=== PATIENT | male | born 1945 | race Caucasian/White ===

== ENCOUNTER 2016-09-22 13:46 | Observation (INO) ==
[2016-09-22] MEDS ORDERED: NITROGLYCERIN 2% OINT 1 INCH/GM PACK TOP STA (16:28)
[2016-09-22] MEDS ORDERED: MORPHINE 2 MG/1 ML SYRINGE IV STA (16:28)
[2016-09-22] MEDS ORDERED: ONDANSETRON 4 MG/2 ML VIAL IV STA (16:28)
[2016-09-22] MEDS ORDERED: ALUM/MAG/SIMETH/LIDO VISC 1:1 30 ML BOTTLE PO STA (16:28)
[2016-09-22] MEDS ORDERED: ASPIRIN 325 MG TABLET PO STA (16:28)
--- NOTE | 2016-09-22 17:02 | Emergency Department Note ---
Yaakov Fuentes Gwan, am scribing for, and in the presence of, Erik Bear MD 16 :48. Marianela Fuentes Charles R, MD, personally performed the services described in this documentation, ascribed by Roshan Nuno in my presence, and it is both accurate and complete 702 . Arrival - Arrival Chief Complaint: Chest Pain Stated Complaint: chest pain ED Nursing Triage Note: woke up this am with a squeezing type pain over left chest. reports pain is worse with movement. denies any other s/s with the pain. Mode of Arrival: Ambulatory Limitations: No Limitations Source: Patient, Significant other (), Old Records Reviewed, RN Notes Reviewed Time Seen by Provider: 09/22/16 15:31 - History of Present Illness HPI Narrative: Patient is a 70 y/o white male who presents to the ED with a c/o squeezing upper left chest pain with an onset 0400 this morning. Patient describes his pain as "squeezing" and stated that his pain is worsened with movement. He confirmed that he is followed by Dr. Youssef but denies any hx of heart problems or having a stress test. During exam, it was identified that pt has reproducible chest wall pain with twisting motion and when he attempts to pull himself up. No other problems/complaints reported in ED. Onset (ago): hour(s) Consistency: constant Severity: moderate Allergies/Adverse Reactions: Allergies Allergy/AdvReac Type Severity Reaction Status Date / Time No Known Allergies Allergy Unverified 09/22/16 14:18 Home Medications: Home Medications Medication Instructions Recorded Confirmed Type Aspirin EC Tab 81 mg PO QAM 09/22/16 09/22/16 History Simvastatin 20 mg PO BEDTIME 09/22/16 09/22/16 History Review of System - Review of System 12 point system: reviewed and no additional remarkable complaints except as stated - Review of System Constitutional: Absent: chills, fever Eyes: Absent: discharge Head/Ears/Nose/Throat: Absent: earache Respiratory: Absent: cough Cardiovascular: Present: as per HPI, chest pain Gastrointestinal: Absent: abdominal pain, nausea, vomiting, diarrhea Genitourinary male: Absent: urgency, dysuria Musculoskeletal: Absent: arm pain, back pain, leg pain, neck pain Skin: Absent: rash, lesions Medical,Surgical,& Family Hx - Medical History Endocrine: History of: Dyslipidemia - Social History Smoking Status: Former smoker Exam Vital Signs: Vital Signs Temperature 98.4 F 09/22/16 14:15 Pulse Rate 80 09/22/16 18:45 Respiratory Rate 17 09/22/16 18:45 Blood Pressure 121/79 09/22/16 18:45 O2 Sat by Pulse Oximetry 97 09/22/16 18:45 - General General appearance: alert, in no apparent distress - Head Head exam: Present: atraumatic, normocephalic - Eye Eye exam: Present: normal appearance, PERRL, EOMI - ENT ENT exam: Present: normal oropharynx, mucous membranes moist, TM's normal bilaterally, normal external ear exam - Neck Neck exam: Present: full ROM, trachea midline. Absent: tenderness - Chest Chest inspection: Present: symmetric chest wall rise, tenderness (Left chest wall tenderness to twisting motion and when the patient attempts to pull himself up) - Respiratory Respiratory exam: Present: normal lung sounds bilaterally. Absent: respiratory distress - Cardiovascular Cardiovascular exam: Present: regular rate, normal rhythm, normal heart sounds. Absent: murmur - Abdominal Exam Abdominal exam: Present: soft, normal bowel sounds. Absent: distention, tenderness - Extremities Exam Extremities exam: Present: full ROM. Absent: tenderness - Back Exam Back exam: Present: full ROM. Absent: tenderness - Neurological Exam Neurological exam: Present: alert, oriented X3, CN II-XII intact. Absent: motor sensory deficit - Psychiatric Psychiatric exam: Present: normal affect, normal mood - Skin Skin exam: Present: warm, dry, intact, normal color Course - Consultations Time: 19:09 Results - Labs CBC & BMP: 09/22/16 16:58 09/22/16 16:58 Lab Results: I have reviewed the patients labs Labs: Laboratory Tests 09/22/16 16:58 WBC 9.1 RBC 5.43 Hgb 16.0 Hct 46.3 MCV 85.3 L Plt Count 199 Lymph % (Auto) 16.3 L - Diagnostic Findings Procedure: Chest x-ray: report reviewed by me (Sequelae of remote granulomatous process. ) Disposition Clinical Impression: Chest pain Case discussed with: patient, patient's family Disposition: Still a Patient Condition: Stable Time of Disposition: 19:09
--- NOTE | 2016-09-22 17:03 | XRay Report ---
History is chest pain The heart is at the upper is normal in size Densely calcified left lung granulomas present No congestive failure or confluent infiltrate seen. The lungs are mildly under aerated. Impression: Sequelae of remote granulomatous process PROCEDURE INTERPRETED AT [facility] DEPARTMENT OF RADIOLOGY Final Report Signed by: Dr. Tiffany Mckeon
[2016-09-22 17:09] LABS: Basophils # 0.1 10*3/uL (0.0-0.2); Basophils % 0.6 % (0.0-0.8); Eosinophils # 0.4 10*3/uL (0.0-0.87); Eosinophils % 4.4 % (0.00-10.9); Hematocrit 46.3 VOL% (42.0-52.0); Immature Granulocytes % 0.6 %; Immature Granulocytes Absolute 0.05 #; Lymphocytes # 1.5 10*3/uL (1.4-4.0); Lymphocytes % 16.3 % (21.2-54.2); Mean Corpuscular HGB Conc 34.6 GM/DL (32-36); Mean Corpuscular Hemoglobin 30 PG (27-34); Mean Corpuscular Volume 85.3 FL (87-102); Mean Platelet Volume 9.9 FL (9.6-12.0); Monocytes # 0.7 10*3/uL (0.11-0.8); Monocytes % 7.5 % (1.7-12.7); Neutrophils # 6.4 10*3/uL (1.4-7.4); Neutrophils % 70.6 % (38.7-73.9); Platelet Count 199 T/CUMM (130-400); Red Blood Count 5.43 MC/CUMM (3.8-5.5); Red Cell Distribution Width 13.4 % (9.3-17.3); White Blood Count 9.1 T/CUMM (4-12)
[2016-09-22] MEDS ORDERED: NITROGLYCERIN 2% OINT 1 INCH/GM PACK TOP ONE (17:29)
[2016-09-22] MEDS ORDERED: ONDANSETRON 4 MG/2 ML VIAL ONE (17:29)
[2016-09-22] MEDS ORDERED: ALUM/MAG/SIMETH/LIDO VISC 1:1 30 ML BOTTLE PO ONE (17:30)
[2016-09-22] MEDS ORDERED: ASPIRIN 325 MG TABLET ONE (17:30)
[2016-09-22] MEDS ORDERED: MORPHINE 2 MG/1 ML SYRINGE ONE (17:30)
[2016-09-22 17:36] LABS: D-Dimer <= 0.5 MG/L FEU; INR 0.9; PT Patient Result 9.9 SECS
[2016-09-22 17:40] LABS: Albumin 3.7 G/DL (3.4-5.0); Bilirubin,Total 0.4 MG/DL (0.2-1.0); Calcium 9.1 MG/DL (8.5-10.1); Magnesium 2.1 MG/DL (1.8-2.4); Osmolality,Calculated 277.4 MOS/KG (273-304); Potassium 3.9 MMOL/L (3.5-5.1); Total Protein 6.9 G/DL (6.4-8.3)
[2016-09-22] MEDS ORDERED: ONDANSETRON 4 MG/2 ML VIAL IV PRN (20:06)
--- NOTE | 2016-09-22 20:17 | Hospitalist History & Physical ---
Assessment and Plan (1) History of dyslipidemia Status: Acute Current Visit: Yes (2) Chest pain Status: Acute Assessment and plan: Our plan for this patient. Patient to telemetry. Will consult cardiology and draw serial cardiac enzymes. Continue home meds as appropriate. Patient is fairly healthy for his 70 years of age. He is on very little home medications. He has never had a heart workup. I think he would benefit from admission and evaluation of this chest pain. Current Visit: Yes History of Present Illness Chief complaint: Chest pain History of present illness: Mr. George is a 70 year old male with past medical history significant for includes cholesterol who is in his normal state of health until this morning. Patient said he woke up with a squeezing sensation in his chest. He knows that it is his heart. It has been going off and on all day. He denies shortness of breath diaphoresis or exertional component. He also denies any radiation of the chest pain. He does notice pain when he moves his arm. But it is hard for him to specify whether this is the same squeezing sensation or if this is different pain. He has no chest wall pain to palpation. I was consulted to admit him to the emergency room Home Medications Medication Instructions Recorded Confirmed Type Aspirin EC Tab 81 mg PO QAM 09/22/16 09/22/16 History Simvastatin 20 mg PO BEDTIME 09/22/16 09/22/16 History Allergies Allergy/AdvReac Type Severity Reaction Status Date / Time No Known Allergies Allergy Unverified 09/22/16 14:18 Medical,Surgical,& Family Hx - Medical History Endocrine: History of: Dyslipidemia - Surgical History Additional Surgical History: none - Family History Family History: Reports;: Family Cancer, Family Stroke - Social History Smoking Status: Former smoker Frequency of Alcohol Use: None Type of Drug Use: None 12 point system: reviewed and no additional remarkable complaints except as stated Exam - Constitutional Vitals: Period Temp Pulse Resp BP Sys/Valero Pulse Ox Last 24 Hr 98.4 F-98.4 F 71-80 16-20 121-167/79-101 97-99 General appearance: normal weight - Head Head exam: Present: normal inspection - Eye Eye exam: Present: EOMI Pupils: Present: APRYL - ENT ENT exam: Present: normal exam - Neck Neck exam: Present: normal inspection - Respiratory Respiratory exam: Present: clear to auscultation bilaterally - Cardiovascular Cardiovascular exam: Present: regular rate and rhythm - GI/Abdominal GI/Abdominal exam: Present: normal bowel sounds - Extremities Exam Extremities exam: Present: normal inspection - Back Exam Back exam: Present: normal inspection - Neurological Exam Neurological exam: Present: alert, oriented X3 - Psychiatric Psychiatric exam: Present: normal affect, normal mood Results - Labs CBC & BMP: 09/22/16 16:58 09/22/16 16:58
[2016-09-22 20:48] LABS: Risk Ratio 2.35; VLDL CHOLESTEROL 14.4 MG/DL
[2016-09-22] MEDS: SIMVASTATIN 20 MG TABLET PO SCH (21:52)
[2016-09-22] MEDS: ENOXAPARIN 40 MG/0.4 ML SYRINGE SUBCUT SCH (21:53)
[2016-09-23] MEDS: NITROGLYCERIN 2% OINT 1 INCH/GM PACK TOP SCH ×3 (06:00→12:28)
--- NOTE | 2016-09-23 07:52 | EKG Report ---
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
[2016-09-23] MEDS: ASPIRIN EC 325 MG TABLET PO SCH (09:03)
--- NOTE | 2016-09-23 09:23 | Cardiology Consult Note ---
Assessment and Plan - Time spent with patient Time spent with patient: Greater than 30 minutes (1) Atypical chest pain Status: Acute Assessment and plan: See plan of care listed below. Current Visit: Yes (2) Hyperlipidemia Status: Chronic Assessment and plan: See plan of care listed below. Current Visit: Yes (3) Former smoker Status: Chronic Assessment and plan: See plan of care listed below. Current Visit: Yes History of Present Illness - Data of Consult Patient: new to practice Consult date: 09/23/16 Requesting Physician: Dennis Manzo Primary care physician: Darrin Youssef - Consult Narrative Reason for consult: Chest pain History of present illness: Conditioner Tender: Otf to cardiologyMirella (new) PCP: Dr. Darrin Youssef Mr. George is a 70 year old male patient without history of known coronary artery disease, not routinely followed by cardiology. Patient presented to the emergency department yesterday evening with complaints of chest discomfort. Patient has cardiac risk factors significant for hyperlipidemia, advanced age and former smoker (reports that he quit over 40 years ago). Patient denies any significant family history of heart disease. Patient reports that he is quite healthy for his age and only takes a baby aspirin and statin daily. He has never been seen by cardiology and has never undergone cardiac workup. Reports that she last saw Dr. Youssef in May and got a good report. Patient presented to [place] emergency department yesterday afternoon with complaints of squeezing chest pain located to his left upper chest. He reports that this woke him around 4:00 yesterday morning. This was nonradiating and not associated with shortness of breath, nausea, vomiting, diaphoresis or palpitations. He describes this pain as a squeezing and spasm type pain that is worse with movement and certain positions. Also exacerbated by coughing and deep breathing. This does not have any exertional component. Patient reports that he is extremely active individual. He has a large garden and a several acre yard that he works on regularly. He reports that he can perform his daily activities without experiencing any chest discomfort or shortness of breath. Reports that he has a good exercise tolerance and does not experience any dyspnea on exertion. He has never had any chest discomfort prior to yesterday morning. She denies fever, chills, cough, abdominal pain, nausea, vomiting, melena, heart racing/palpitations, orthopnea, PND and lower extremity swelling. Patient's pain persisted and yesterday afternoon he decided he should be further evaluated in the emergency department. Patient was admitted under hospitalist's service and housed on the telemetry unit. Cardiology has been consulted to further evaluate patient's chest discomfort. Patient was seen and examined on the telemetry unit. He is currently without chest pain, heaviness and tightness. Patient's chest pain is reproducible to light palpation. Troponin has been negative 3 and EKG does not show any significant ischemic changes. BNP stable at 13. Patient is currently normal sinus rhythm without any overt arrhythmias or ectopy noted. Will keep patient n.p.o. and further discuss with Dr. Vu regarding the need for further cardiac workup. Further plan and addendum to follow per Dr. Vu. Assessment/plan: 1. ATYPICAL CHEST PAIN - Patient's chest pain is atypical in nature as it is reproducible to light palpation. Patient only has minimal cardiac risk factors including advanced age, hyperlipidemia and former smoker. I feel that it is reasonable to treat patient's chest wall pain and set him up for outpatient cardiac stress testing at the [facility] this week. I will further discuss this with Dr. Vu. Further plan and recommendations to follow. 2. HYPERLIPIDEMIA - Lipid panel is reviewed. Continue current plan of care with lipid lowering agent. 3. FORMER SMOKER - Patient reports that he quit smoking approximately 40 years ago. Further plan and addendum to follow per Dr. Atkins. CC: Ghada Edwards MD - Home Medications and Allergies Home Medications: Home Medications Medication Instructions Recorded Confirmed Type Aspirin EC Tab 81 mg PO QAM 09/22/16 09/22/16 History Simvastatin 20 mg PO BEDTIME 09/22/16 09/22/16 History Allergies/Adverse Reactions: Allergies Allergy/AdvReac Type Severity Reaction Status Date / Time No Known Allergies Allergy Unverified 09/22/16 14:18 - Constitutional Constitutional: Present: as per HPI. Absent: chills, fatigue, fever(s), frequent falls, headache(s), lethargy, malaise, weakness, weight gain, weight loss - Cardiovascular Cardiovascular: Present: as per HPI, chest pain at rest. Absent: chest pain with activity, claudication, diaphoresis, dyspnea, dyspnea on exertion, edema, radiating jaw, neck or arm pain, lightheadedness, orthopnea, palpitations, PND - Respiratory Respiratory: Present: as per HPI, pain on inspiration. Absent: cough, dyspnea, hemoptysis, dyspnea on exertion, wheezing, snoring, change in phlegm color - Gastrointestinal Gastrointestinal: Absent: abdominal pain, change in bowel habits, coffee ground emesis, constipation, cramping, diarrhea, heartburn, hematemesis, hematochezia, loose stools, melena, nausea, vomiting - Neurological Neurological: Absent: abnormal gait, abnormal speech, behavioral changes, dizziness, frequent falls, headache(s), paresthesias, radicular pain, syncope, tremor(s) - Hematologic/Lymphatic Hematologic/Lymphatic: Absent: easy bleeding, easy bruising, lymphadenopathy Medical,Surgical,& Family Hx - Medical History Cardio: No history of: Cardiovascular Problems Endocrine: History of: Dyslipidemia Other: History of: Miscellaneous Medical Problems (Former smoker) - Surgical History Cardiac Surgeries: Patient Denies: Cardiac Catheterization, Cardiac Surgery - Family History Family History: Reports;: Family Cancer, Family Diabetes, Family Stroke Denies;: Family Heart Disease - Social History Smoking Status: Former smoker Frequency of Alcohol Use: None Type of Drug Use: None Physical Examination Vital Signs Temp Pulse Resp BP Pulse Ox 98.4 F 72 18 167/101 97 09/22/16 14:15 09/22/16 14:15 09/22/16 14:15 09/22/16 14:15 09/22/16 14:15 Other: General: Appears well with no apparent distress. Pleasant and cooperative. Appears comfortable. HEENT: PERRL, normocephalic, atraumatic. Mucous membranes moist. No jaundice noted. Conjunctiva moist and clear, sclerae anicteric Neck: No JVD/HJR, no thyromegaly or lymphadenopathy noted. No carotid bruit appreciated Cardiac: Regular rate and rhythm. No murmur rub or gallop. Chest wall: Chest is tender to light palpation. Lungs: Clear to auscultation without accessory muscle use to assist the respiratory pattern. Not requiring oxygen. Abdomen: Soft, bowel sounds normoactive. Nontender and nondistended. No abdominal bruit or thrill noted. No masses noted. Extremities: No clubbing, cyanosis noted. No edema noted. Upper extremity pulses 2+. Lower extremity pulses 2+. Capillary refill less than 3 seconds. Skin: No unusual lesions or rashes. No skin breakdown appreciated. Neuro: Awake, alert and oriented 3. Moves all extremities well without hemiparesis or paralysis. No essential tremor is appreciated. Result/EKG - Labs CBC & BMP: 09/22/16 16:58 09/22/16 16:58 Lab Results: I have reviewed the past 24 hour labs Labs: Laboratory Results - last 24 hr 09/22/16 09/22/16 09/22/16 16:58 16:58 16:58 WBC RBC Hgb Hct MCV MCH MCHC RDW Plt Count MPV Neut % (Auto) Lymph % (Auto) [place] % (Auto) Eos % (Auto) Baso % (Auto) Neut # (Auto) Lymph # (Auto) [place] # (Auto) Eos # (Auto) Baso # (Auto) Immature Gran % Nucleated RBC % Immature Gran # Nucleated RBCs # INR 0.9 PT Patient/Control Mix 9.9 D-Dimer, Quantitative <= 0.5 Sodium 140 Potassium 3.9 Chloride 106 Carbon Dioxide 24 Anion Gap 13.9 BUN 12 Creatinine 0.60 L GFR Calculation 128 BUN/Creatinine Ratio 20.00 Glucose 86 Calculated Osmolality 277.4 Calcium 9.1 Magnesium 2.1 Total Bilirubin 0.40 AST 22 ALT 27 Alkaline Phosphatase 95 Troponin I B-Natriuretic Peptide 13 Total Protein 6.9 Albumin 3.7 Globulin 3.2 Albumin/Globulin Ratio 1.1 Triglycerides Cholesterol LDL Cholesterol VLDL Cholesterol HDL Cholesterol Heart Disease Risk Ratio Lipase 270.0 09/22/16 09/22/16 09/22/16 16:58 16:58 16:58 WBC 9.1 RBC 5.43 Hgb 16.0 Hct 46.3 MCV 85.3 L MCH 30 MCHC 34.6 RDW 13.4 Plt Count 199 MPV 9.9 Neut % (Auto) 70.6 Lymph % (Auto) 16.3 L [place] % (Auto) 7.5 Eos % (Auto) 4.4 Baso % (Auto) 0.6 Neut # (Auto) 6.4 Lymph # (Auto) 1.5 [place] # (Auto) 0.7 Eos # (Auto) 0.4 Baso # (Auto) 0.1 Immature Gran % 0.6 Nucleated RBC % 0.0 Immature Gran # 0.05 Nucleated RBCs # 0.00 INR PT Patient/Control Mix D-Dimer, Quantitative Sodium Potassium Chloride Carbon Dioxide Anion Gap BUN Creatinine GFR Calculation BUN/Creatinine Ratio Glucose Calculated Osmolality Calcium Magnesium Total Bilirubin AST ALT Alkaline Phosphatase Troponin I < 0.015 B-Natriuretic Peptide Total Protein Albumin Globulin Albumin/Globulin Ratio Triglycerides 72 Cholesterol 155 LDL Cholesterol 80.0 VLDL Cholesterol 14.4 HDL Cholesterol 66 H Heart Disease Risk Ratio 2.35 Lipase 09/22/16 09/22/16 20:57 22:24 WBC RBC Hgb Hct MCV MCH MCHC RDW Plt Count MPV Neut % (Auto) Lymph % (Auto) [place] % (Auto) Eos % (Auto) Baso % (Auto) Neut # (Auto) Lymph # (Auto) [place] # (Auto) Eos # (Auto) Baso # (Auto) Immature Gran % Nucleated RBC % Immature Gran # Nucleated RBCs # INR PT Patient/Control Mix D-Dimer, Quantitative Sodium Potassium Chloride Carbon Dioxide Anion Gap BUN Creatinine GFR Calculation BUN/Creatinine Ratio Glucose Calculated Osmolality Calcium Magnesium Total Bilirubin AST ALT Alkaline Phosphatase Troponin I < 0.015 < 0.015 B-Natriuretic Peptide Total Protein Albumin Globulin Albumin/Globulin Ratio Triglycerides Cholesterol LDL Cholesterol VLDL Cholesterol HDL Cholesterol Heart Disease Risk Ratio Lipase
--- NOTE | 2016-09-23 10:34 | EKG Report ---
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
[2016-09-23] MEDS: ACETAMINOPHEN 325 MG TABLET PO SCH ×2 (12:42→21:21)
[2016-09-23] MEDS: GABAPENTIN 100 MG CAPSULE PO SCH ×2 (15:41→21:21)
--- NOTE | 2016-09-23 16:02 | Hospitalist Progress Note ---
Hospitalist: Subjective Interval history: No new complaints. No significant overnight events noted or reported. Patient is currently chest pain-free. Denies any shortness of breath or palpitations. Exam - Constitutional Vitals: Period Temp Pulse Resp BP Sys/Valero Pulse Ox Last 24 Hr 97.4 F-97.6 F 62-81 16-20 113-157/53-94 95-99 Exam: Awake alert and oriented Regular rate and rhythm no obvious murmurs Clear to auscultation bilaterally nonlabored Soft, nontender, nondistended positive bowel sounds Warm and well-perfused no clubbing cyanosis or edema Results - Labs CBC & BMP: 09/22/16 16:58 09/22/16 16:58 - Impressions (1) History of dyslipidemia Status: Acute Current Visit: Yes (2) Chest pain Status: Acute Assessment and plan: Awaiting cardiology recommendation. Cont telemetry. Serial cardiac enzymes are negative. Cont ASA and statin and other home meds that are appropriate. Dispo pending cards recs.
[2016-09-23 17:37] LABS: Troponin I Only < 0.015 NG/ML (0.00-0.045)
[2016-09-23] MEDS: SIMVASTATIN 20 MG TABLET PO SCH (21:21)
[2016-09-23] MEDS: ENOXAPARIN 40 MG/0.4 ML SYRINGE SUBCUT SCH (21:23)
[2016-09-24 02:15] LABS: Troponin I Only < 0.015 NG/ML (0.00-0.045)
[2016-09-24 05:48] LABS: Basophils % 0.4 % (0.0-0.8); Eosinophils # 0.4 10*3/uL (0.0-0.87); Eosinophils % 5.4 % (0.00-10.9); Hematocrit 45.4 VOL% (42.0-52.0); Hemoglobin 15.5 GM/DL (14.0-18.0); Immature Granulocytes % 0.3 %; Immature Granulocytes Absolute 0.02 #; Lymphocytes # 1.3 10*3/uL (1.4-4.0); Lymphocytes % 19.3 % (21.2-54.2); Mean Corpuscular HGB Conc 34.1 GM/DL (32-36); Mean Corpuscular Hemoglobin 29 PG (27-34); Mean Corpuscular Volume 85.2 FL (87-102); Mean Platelet Volume 9.8 FL (9.6-12.0); Monocytes # 0.8 10*3/uL (0.11-0.8); Monocytes % 11.9 % (1.7-12.7); Neutrophils # 4.2 10*3/uL (1.4-7.4); Neutrophils % 62.7 % (38.7-73.9); Platelet Count 188 T/CUMM (130-400); Red Blood Count 5.33 MC/CUMM (3.8-5.5); Red Cell Distribution Width 13.5 % (9.3-17.3); White Blood Count 6.7 T/CUMM (4-12)
[2016-09-24 06:21] LABS: Calcium 8.6 MG/DL (8.5-10.1); Magnesium 2.2 MG/DL (1.8-2.4); Osmolality,Calculated 280.3 MOS/KG (273-304); Potassium 4.3 MMOL/L (3.5-5.1)
--- NOTE | 2016-09-24 08:05 | EKG Report ---
Stationary ECG Study 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
[2016-09-24] MEDS ORDERED: traMADol 50 MG TABLET PO SCH (09:00)
[2016-09-24] MEDS: ACETAMINOPHEN 325 MG TABLET PO SCH (09:28)
[2016-09-24] MEDS: GABAPENTIN 100 MG CAPSULE PO SCH (09:28)
[2016-09-24] MEDS: ASPIRIN EC 325 MG TABLET PO SCH (09:28)
--- NOTE | 2016-09-24 10:54 | Cardiology Progress Note ---
<Carmenza Nguyne - Last Filed: 09/24/16 10:43> Assessment and Plan (1) Atypical chest pain Status: Acute Assessment and plan: See plan of care listed below. (2) Hyperlipidemia Status: Chronic Assessment and plan: See plan of care listed below. (3) Former smoker Status: Chronic Assessment and plan: See plan of care listed below. 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 Darrin Youssef SUMMARY: Patient presented to [facility] with atypical chest pain, consistent with musculoskeletal type pain. He has a past medical history of hyperlipidemia. Cardiac risk factors significant for advanced age, hyperlipidemia and former smoker. September UPDATE: Patient was seen and examined on the telemetry unit. This morning, he is sitting up in chair in no acute distress. Currently without chest pain, heaviness and tightness. Cardiac biomarkers have been negative and EKG is without significant ischemic changes. At this point, we are treating patient for chest wall pain. Recommend that he be discharged home with tramadol, gabapentin and Tylenol. However, patient does have cardiac risk factors and would benefit from further cardiac workup. After discussing with Dr. Vu, we feel it is reasonable for patient to be discharged home and scheduled for outpatient cardiac stress testing at the cardiovascular [place] [facility] next week. He will then follow with Dr. Vu 1 week following his stress test to review results. Recommend being discharged home with tramadol, gabapentin and Tylenol to treat his chest wall pain. Coreg has also been initiated for further risk stratification as patient's blood pressure has been mildly uncontrolled overnight. Assessment/plan: 1. ATYPICAL CHEST PAIN - Patient's chest pain is atypical in nature as it is reproducible to light palpation. Patient does have cardiac risk factors significant for advanced age, hyperlipidemia former smoker. After discussing with Dr. Vu, we feel it is reasonable for patient to be discharged home and scheduled for outpatient cardiac stress testing at the cardiovascular [place] [facility] next week. He will then follow with Dr. Vu 1 week following his stress test to review results. Recommend being discharged home with tramadol, gabapentin and Tylenol to treat his chest wall pain. Coreg has also been initiated for further risk stratification as patient's blood pressure has been mildly uncontrolled overnight. 2. HYPERLIPIDEMIA - Continue current plan of care with lipid lowering agent. 3. FORMER SMOKER - Patient reports that he quit smoking approximately 40 years ago. Further plan and addendum to follow per Dr. Atkins. Recommend the following discharge medications: Tramadol 50 mg twice a daily 1 week (for chest wall pain) Gabapentin 100 mg 3 times daily 1 month (for chest wall pain) Tylenol 325 mg twice daily 1 week but states for chest wall pain) Simvastatin 20 mg p.o. daily Aspirin 325 mg daily Coreg 3.125 twice daily Exam (Progress Note) - Constitutional Vitals: Period Temp Pulse Resp BP Sys/Valero Pulse Ox Last 24 Hr 97.6 F-98.4 F 81-94 18-20 112-153/63-88 95-99 Exam: General: Appears well with no apparent distress. Pleasant and cooperative. Appears comfortable. HEENT: PERRL, normocephalic, atraumatic. Mucous membranes moist. No jaundice noted. Conjunctiva moist and clear, sclerae anicteric Neck: No JVD/HJR, no thyromegaly or lymphadenopathy noted. No carotid bruit appreciated Cardiac: Regular rate and rhythm. No murmur rub or gallop. Chest wall: Chest is tender to light palpation. Lungs: Clear to auscultation without accessory muscle use to assist the respiratory pattern. Not requiring oxygen. Abdomen: Soft, bowel sounds normoactive. Nontender and nondistended. No abdominal bruit or thrill noted. No masses noted. Extremities: No clubbing, cyanosis noted. No edema noted. Upper extremity pulses 2+. Lower extremity pulses 2+. Capillary refill less than 3 seconds. Skin: No unusual lesions or rashes. No skin breakdown appreciated. Neuro: Awake, alert and oriented 3. Moves all extremities well without hemiparesis or paralysis. No essential tremor is appreciated. Result/EKG - Labs CBC & BMP: 09/24/16 05:37 09/24/16 05:38 Lab Results: I have reviewed the past 24 hour labs Labs: Laboratory Results - last 24 hr 09/23/16 09/24/16 09/24/16 16:42 01:21 05:37 WBC 6.7 RBC 5.33 Hgb 15.5 Hct 45.4 MCV 85.2 L MCH 29 MCHC 34.1 RDW 13.5 Plt Count 188 MPV 9.8 Neut % (Auto) 62.7 Lymph % (Auto) 19.3 L [place] % (Auto) 11.9 Eos % (Auto) 5.4 Baso % (Auto) 0.4 Neut # (Auto) 4.2 Lymph # (Auto) 1.3 L [place] # (Auto) 0.8 Eos # (Auto) 0.4 Baso # (Auto) 0.0 Immature Gran % 0.3 Nucleated RBC % 0.0 Immature Gran # 0.02 Nucleated RBCs # 0.00 Sodium Potassium Chloride Carbon Dioxide Anion Gap BUN Creatinine GFR Calculation BUN/Creatinine Ratio Glucose Calculated Osmolality Calcium Magnesium Total Creatine Kinase 60 71 CK-MB (CK-2) 1.1 < 1.0 Troponin I < 0.015 < 0.015 09/24/16 05:38 WBC RBC Hgb Hct MCV MCH MCHC RDW Plt Count MPV Neut % (Auto) Lymph % (Auto) [place] % (Auto) Eos % (Auto) Baso % (Auto) Neut # (Auto) Lymph # (Auto) [place] # (Auto) Eos # (Auto) Baso # (Auto) Immature Gran % Nucleated RBC % Immature Gran # Nucleated RBCs # Sodium 141 Potassium 4.3 Chloride 105 Carbon Dioxide 28 Anion Gap 12.3 BUN 14 Creatinine 0.80 GFR Calculation 112 BUN/Creatinine Ratio 17.00 Glucose 84 Calculated Osmolality 280.3 Calcium 8.6 Magnesium 2.2 Total Creatine Kinase CK-MB (CK-2) Troponin I Specialty Discharge - Follow Up or Referrals Follow up with: Jimi Vu MD [Physician] - 1 Week (Patient will need appointment for outpatient cardiac stress testing at cardiovascular [place] [facility] early next week. He will then need a follow-up appointment with Dr. Vu 1 week following his stress test. STRESS TEST IS ON 09/30/16 AT 7:30 (NPO AFTER M/N AND NO CAFFIENE)! DR VU ON 10/07/16 AT 9:20) <Jimi Vu - Last Filed: 09/25/16 14:58> Assessment and Plan (1) Hypertension Status: Acute (2) Chest wall pain Status: Acute (3) Chest pain Status: Acute (4) Former smoker Status: Chronic (5) History of dyslipidemia Status: Chronic (6) Hyperlipidemia Status: Chronic Result/EKG - Labs CBC & BMP: 09/24/16 05:37 09/24/16 05:38
[2016-09-24] MEDS ORDERED: CARVEDILOL 3.125 MG TABLET PO SCH (11:00)
--- NOTE | 2016-09-24 11:48 | Discharge Summary ---
Hospital Course - Hospital Course Hospital Course: Patient is a 70-year-old male with a history of dyslipidemia who presented to the hospital with a chief complaint of chest pain. Chest x-ray was unremarkable. EKG showed no acute ST or T-wave changes. Chest pain was noted to be atypical but due to risk factors, he was placed on the chest pain pathway and cardiology was consulted. Patient reports he did not receive any relief with sublingual nitro. It was thought his symptoms were related to costochondritis/chest wall pain. Given his risk factors, he was treated with aspirin and statin and was monitored on telemetry without any significant dysrhythmias noted. Cardiology evaluated and recommended an outpatient stress test. Cardiac markers were negative. Once cleared by cardiology, patient was discharged to home for ongoing care. - Time spent with patient Time with patient DS: Greater than 30 minutes (32 minutes) Diagnosis - Discharge Diagnosis (1) Atypical chest pain Status: Resolved (2) History of dyslipidemia Status: Chronic (3) Former smoker Status: Chronic Specialty Discharge - Follow Up or Referrals Follow up with: Jimi Vu MD [Physician] - 1 Week (Patient will need appointment for outpatient cardiac stress testing at cardiovascular [facility] early next week. He will then need a follow-up appointment with Dr. Vu 1 week following his stress test. STRESS TEST IS ON 09/30/16 AT 7:30 (NPO AFTER M/N AND NO CAFFIENE)! DR VU ON 10/07/16 AT 9:20) Discharge Plan - Discharge Data Condition at Discharge: Stable Discharge Diet: heart healthy Activity: resume usual activities as tolerated Contact your physician if you experience:: fever over 101, Difficulty voiding, Redness or swelling, Nausea/Vomiting, Shortness of breath, Bleeding, pain uncontrolled by pain medications - Discharge Medications Continue Simvastatin 20 mg PO BEDTIME Aspirin EC Tab 81 mg PO QAM - Follow Up or Referral Follow Up: Jimi Vu MD [Physician] - 1 Week (Patient will need appointment for outpatient cardiac stress testing at [facility] early next week. He will then need a follow-up appointment with Dr. Vu 1 week following his stress test. STRESS TEST IS ON 09/30/16 AT 7:30 (NPO AFTER M/N AND NO CAFFIENE)! DR VU ON 10/07/16 AT 9:20) - Forms/Instructions Instructions: Acute Coronary Syndrome Exam - Constitutional Vitals: Period Temp Pulse Resp BP Sys/Valero Pulse Ox Last 24 Hr 97.6 F-98.4 F 81-94 18-20 112-153/63-88 95-99 Exam: A and O 3 exotropia of right eye Regular rate and rhythm no murmur Clear to auscultation bilaterally nonlabored Soft nontender nondistended positive bowel sounds Warm and well-perfused no clubbing cyanosis or edema Discharge Results Procedures and tests throughout hospitalization: Pending Orders 09/25/16 04:00 BMP w/ Mg [Basic Metabolic Panel w/Mg] IN AM CBC [Comp Blood Count Auto Diff] IN AM 09/26/16 04:00 BMP w/ Mg [Basic Metabolic Panel w/Mg] IN AM CBC [Comp Blood Count Auto Diff] IN AM Labs on day of discharge: Labs from last 24 hours 09/24/16 09/24/16 09/24/16 05:38 05:37 01:21 WBC 6.7 RBC 5.33 Hgb 15.5 Hct 45.4 MCV 85.2 L MCH 29 MCHC 34.1 RDW 13.5 Plt Count 188 MPV 9.8 Neut % (Auto) 62.7 Lymph % (Auto) 19.3 L [place] % (Auto) 11.9 Eos % (Auto) 5.4 Baso % (Auto) 0.4 Neut # (Auto) 4.2 Lymph # (Auto) 1.3 L [place] # (Auto) 0.8 Eos # (Auto) 0.4 Baso # (Auto) 0.0 Immature Gran % 0.3 Nucleated RBC % 0.0 Immature Gran # 0.02 Nucleated RBCs # 0.00 Sodium 141 Potassium 4.3 Chloride 105 Carbon Dioxide 28 Anion Gap 12.3 BUN 14 Creatinine 0.80 GFR Calculation 112 BUN/Creatinine Ratio 17.00 Glucose 84 Calculated Osmolality 280.3 Calcium 8.6 Magnesium 2.2 Total Creatine Kinase 71 CK-MB (CK-2) < 1.0 Troponin I < 0.015 09/23/16 16:42 WBC RBC Hgb Hct MCV MCH MCHC RDW Plt Count MPV Neut % (Auto) Lymph % (Auto) [place] % (Auto) Eos % (Auto) Baso % (Auto) Neut # (Auto) Lymph # (Auto) [place] # (Auto) Eos # (Auto) Baso # (Auto) Immature Gran % Nucleated RBC % Immature Gran # Nucleated RBCs # Sodium Potassium Chloride Carbon Dioxide Anion Gap BUN Creatinine GFR Calculation BUN/Creatinine Ratio Glucose Calculated Osmolality Calcium Magnesium Total Creatine Kinase 60 CK-MB (CK-2) 1.1 Troponin I < 0.015 DS: Provider Date of admission: 09/22/16 19:11 Primary care physician: . No PCP Attending physician on admission: Dennis Manzo MD Consults: 09/22/16 20:13 Consult to Physician [CONS] Routine Comment: Consulting Provider: Cardiology - [facility] Consult to Specialist Group: Cardiology When should Consulting Provider be notified: In am Discharging clinician: Ghada Edwards MD
[2016-09-24 12:14] VITALS: BP 152/98
== END 2016-09-24 13:30 | disposition home or self-care (01) ==
LOC: N.ED 13:46 → N.EDINP 13:46 → SUATTDRO 19:11 → N.TELEN 19:45
PROVIDERS: ADMIT Internal Medicine; ATTEND Pediatrics